=== PATIENT | male | born 1960 | race Caucasian/White ===

== ENCOUNTER 2023-01-24 06:57 | Inpatient (IN) ==
--- NOTE | 2023-01-24 07:09 | Emergency Department Note ---
Impression & Plan Unresponsive, ICH (intracerebral hemorrhage) ED Provider Note ED Provider Note NAME: FEI WALKER AGE:62 SEX: Male : 1960 ARRIVES VIA: EMS INFORMANT: EMS ED PROVIDER(s): Aria Singleton DO CHIEF COMPLAINT: Found unresponsive HPI: This is a 62-year-old male who presents from a local facility after being found unresponsive at change of shift by staff there. EMS report on their arrival patient was unresponsive, tachycardic, and hypertensive. They state per staff patient had been complaining of a headache the last 3 days. Patient is anticoagulated on Coumadin. Prehospital blood glucose mildly elevated in the 200s, patient was 90% on 6 L via nasal cannula. No additional information initially available. They state paperwork accompanying the patient stated he is DNR/DNI. PAST MEDICAL HISTORY:See Below PAST SURGICAL HISTORY:See Below FAMILY HISTORY:See Below SOCIAL HISTORY:See Below HOME MEDICATIONS:See Below ALLERGIES:See Below VITALS:See Below PHYSICAL EXAMINATION: GENERAL: Unresponsive, well nourished EYE EXAM: normal conjunctiva, pupils midposition, fixed, and slightly dilated OROPHARYNX: no exudate, no erythema, lips, buccal mucosa, and tongue normal and mucous membranes are dry, no gag reflex NECK: supple, no nuchal rigidity, no adenopathy LUNGS: Clear to auscultation. Normal chest wall mechanics, no w/r/r, sonorous respirations HEART: no murmurs, S1 normal and S2 normal, tachycardic ABDOMEN: abdomen soft, non-tender, normo-active bowel sounds, no masses, no elisabeth ound or guarding. BACK: Back is symmetrical on inspection and there is no deformity, no midline tenderness, no CVA tenderness. SKIN: no rashes, petechiae, orbruising UPPER EXTREMITIES: upper extremities are grossly normal. FROM, nml pulses b/l. LOWER EXTREMITIES: No pitting edema. FROM, nml pulses b/l. NEURO EXAM: GCS 3 Vital Signs: reviewed and remarkable Differential Diagnosis: CVA, ICH, ACS, dysrhythmia, sepsis, AAA, dissection, MICK, electrolyte abnormality as well as others were considered MEDICAL DECISION MAKING: This is a 62 yo male who presents unreponsive from a local facility after complaining of headache for 3 days per EMS report. Patient hypertensive and requiring oxygen to support respiratory efforts. GCS 3 on arrival. Labs drawn and sent, IV established, EKG and CXR performed and interpreted at bedside, and patient placed on telemetry. Patient on coumadin per [place] report additionally. Patient sent urgently for CT head which revealed large ICH. I called and updated daughter and discussed severity and patient's wishes and code status. In honoring his wishes on POLST form and in discussion with daughter, patient kept comfortable and case discussed with hospitalist team for comfort care measures given findings. Consultation(s): 924: Discussed with Kuldip Gagnon hospitalist team. ER Treatment Provided: See below 0735: Updated patient's daughter who is en route. She states patient had a large hemorrhagic stroke in October with surgery and has been rehabbing since. She confirms he is DNR/DNI and would not want to go thru surgery again. 910: Discussed with daughter at bedside. Diagnostics Interpreted By Me: -ECG: a.flutter at 120, left axis, normal QRS, prolonged QT, nonspecific ST/T wave changes -Cardiac Monitoring: An order was placed for continuous cardiac monitoring. The monitor shows a rate of 127 with atrial flutter rhythm. -Laboratory studies: As stated above and show below. -Imaging studies: X-ray Chest: A single view study of the chest was reviewed and was negative for cardiomegaly, focal infiltrate, effusion, or wide mediastinum. Evolving pulmonary edema noted b/l. Triage Nursing Note Reviewed Prior/Outside Records Reviewed - med list from faciity reviewed Procedures: [] Critical Care: Critical care of 49 min performed to assess and manage high likelihood of life- threatening ICH involving labs and imaging performed with assessment to evaluate ICH diagnosis with frequent reassessment. This time includes bedside time, treatment discussions with patient/family/consultants, documentation time and excludes procedure time. Past Med/Surg History Medical History (Updated 01/24/23 @ 10:15 by Carla Donato MD) Atrial fibrillation and flutter Chronic diastolic congestive heart failure Hemorrhagic stroke Hyperlipidemia Non-insulin dependent type 2 diabetes mellitus On warfarin therapy Primary hypertension Social History Smoking Status: Unknown if ever smoked Feels Safe at Home: Yes Allergies Allergies Allergy/AdvReac Type Severity Reaction Status Date / Time No Known Allergies Allergy Unverified 01/24/23 10:00 Home Meds Home Medications Medication Instructions Recorded Confirmed Milk Of Magnesia 1200 Mg/15ml See Rx Instructions .Route .COMPLEX 01/24/23 acetaminophen 325 mg tablet 650 mg PO Q6H PRN Pain 01/24/23 01/24/23 acetaminophen 325 mg tablet 650 mg PO Q6H PRN Temperature 01/24/23 01/24/23 allopurinol 100 mg tablet 100 mg PO QAM 01/24/23 01/24/23 amantadine HCl 100 mg tablet 100 mg PO BID 01/24/23 01/24/23 metformin 500 mg tablet 500 mg PO BID 01/24/23 01/24/23 metoprolol succinate 200 mg 200 mg PO DAILY 01/24/23 01/24/23 capsule sprinkle, ext. release 24 hr tramadol 50 mg tablet 50 mg PO BID 01/24/23 01/24/23 tramadol 50 mg tablet 50 mg PO Q4H PRN Pain 01/24/23 01/24/23 Results & Data (ED) Vital Signs Vital Signs - 24 hr 01/24/23 06:58 01/24/23 07:09 01/24/23 07:05 Temperature 37.7 C H Temperature Source Oral Pulse Rate 122 H 126 H Pulse Rate [Apical] Pulse Rhythm [Apical] Respiratory Rate 17 Respiratory Effort / Characteristics Spontaneous Respiratory Depth Normal Respiratory Pattern Agonal Blood Pressure 184/133 H Blood Pressure [Left Arm] Blood Pressure Mean 150 Blood Pressure Mean [Left Arm] Pulse Oximetry 94 Oxygen Delivery Method Room Air Room Air Oxygen Flow Rate Sepsis Recent Fever Within 48 Hours Yes Sepsis New/Unexplained Change in Mental Status No Sepsis Action Taken by Nursing No Action Required 01/24/23 07:24 01/24/23 07:30 01/24/23 07:45 Temperature Temperature Source Pulse Rate Pulse Rate [Apical] 132 H 94 H Pulse Rhythm [Apical] Irregular Respiratory Rate 18 17 Respiratory Effort / Characteristics Non-Labored Spontaneous Spontaneous Respiratory Depth Normal Respiratory Pattern Agonal Blood Pressure Blood Pressure [Left Arm] 216/144 H 159/100 H Blood Pressure Mean Blood Pressure Mean [Left Arm] 168 119 Pulse Oximetry 75 L 98 97 Oxygen Delivery Method Nasal Cannula Oxymask Oxymask Oxygen Flow Rate 6 13 13 Sepsis Recent Fever Within 48 Hours Sepsis New/Unexplained Change in Mental Status Sepsis Action Taken by Nursing 01/24/23 08:00 Temperature Temperature Source Pulse Rate Pulse Rate [Apical] Pulse Rhythm [Apical] Irregular Respiratory Rate Respiratory Effort / Characteristics Spontaneous Respiratory Depth Respiratory Pattern Agonal Blood Pressure Blood Pressure [Left Arm] 189/126 H Blood Pressure Mean Blood Pressure Mean [Left Arm] 147 Pulse Oximetry 98 Oxygen Delivery Method Oxymask Oxygen Flow Rate 13 Sepsis Recent Fever Within 48 Hours Sepsis New/Unexplained Change in Mental Status Sepsis Action Taken by Nursing Laboratory Data 01/24/23 07:07 01/24/23 07:07 Lab Results 01/24/23 01/24/23 01/24/23 Range/Units 07:07 07:07 07:07 WBC 22.47 H (4.8-10.8) K/ul RBC 6.40 H (4.70-6.10) M/uL Hgb 19.8 H (14.0-18.0) g/dl Hct 57.6 H (42.0-52.0) % MCV 90.0 (80.0-100.0) fL MCH 30.9 (25.0-34.0) pg MCHC 34.4 (32.0-36.0) g/dL RDW Std Deviation 46.0 (36.4-46.3) fL RDW Coeff of Rohith 13.9 (11.5-14.5) % Plt Count 511 H (130-400) K/uL MPV 9.5 (9.4-12.4) fL Immature Gran % (Auto) 0.7 % Neut % (Auto) 93.4 % Lymph % (Auto) 1.9 % [place] % (Auto) 3.8 % Eos % (Auto) 0.0 % Baso % (Auto) 0.2 % Neut # (Auto) 20.98 H (1.40-6.50) K/uL Lymph # (Auto) 0.43 L (1.2-3.4) K/uL [place] # (Auto) 0.85 H (0.11-0.59) K/uL Eos # (Auto) 0.00 (0-0.50) K/uL Baso # (Auto) 0.05 (0-0.2) K/uL Immature Gran # (Auto) 0.16 (0.01-0.20) K/uL PT Cancelled INR Cancelled Sodium 140 (136-145) mmol/L Potassium 3.4 L (3.5-5.1) mmol/L Chloride 93 L (98-107) mmol/L Carbon Dioxide 23 (21-32) mmol/L Anion Gap 24 H (3-11) BUN 17 (6-23) mg/dl Creatinine 0.94 (0.6-1.4) mg/dl Est Cr Clr Drug Dosing 76.8 ml/min Est GFR ( Amer) 98.9 ml/min Est GFR (Non-Af Amer) 85.3 ml/min BUN/Creatinine Ratio 18.1 (10-20) Glucose 251 H (70-99(Fasting)) mg/dl Lactate (0.4-2.0) mmol/L Calcium 10.6 H (8.6-10.3) mg/dl Magnesium 2.0 (1.7-2.4) mg/dl Total Bilirubin 1.2 H (0.2-1.0) mg/dl AST 18 (13-39) U/L ALT 16 (7-52) U/L Alkaline Phosphatase 180 H (34-104) U/L Troponin I High Sens 32.9 H (0-20) pg/ml Total Protein 9.6 H (6.0-8.3) gm/dl Albumin 4.5 (3.4-5.0) gm/dl Globulin 5.1 H (2.5-4.0) gm/dl Albumin/Globulin Ratio 0.9 (0.9-2) Lipase 50 (11-82) U/L 01/24/23 01/24/23 Range/Units 07:07 08:38 WBC (4.8-10.8) K/ul RBC (4.70-6.10) M/uL Hgb (14.0-18.0) g/dl Hct (42.0-52.0) % MCV (80.0-100.0) fL MCH (25.0-34.0) pg MCHC (32.0-36.0) g/dL RDW Std Deviation (36.4-46.3) fL RDW Coeff of Rohith (11.5-14.5) % Plt Count (130-400) K/uL MPV (9.4-12.4) fL Immature Gran % (Auto) % Neut % (Auto) % Lymph % (Auto) % [place] % (Auto) % Eos % (Auto) % Baso % (Auto) % Neut # (Auto) (1.40-6.50) K/uL Lymph # (Auto) (1.2-3.4) K/uL [place] # (Auto) (0.11-0.59) K/uL Eos # (Auto) (0-0.50) K/uL Baso # (Auto) (0-0.2) K/uL Immature Gran # (Auto) (0.01-0.20) K/uL PT 53.9 H INR 5.5 H Sodium (136-145) mmol/L Potassium (3.5-5.1) mmol/L Chloride (98-107) mmol/L Carbon Dioxide (21-32) mmol/L Anion Gap (3-11) BUN (6-23) mg/dl Creatinine (0.6-1.4) mg/dl Est Cr Clr Drug Dosing ml/min Est GFR ( Amer) ml/min Est GFR (Non-Af Amer) ml/min BUN/Creatinine Ratio (10-20) Glucose (70-99(Fasting)) mg/dl Lactate 6.1 H* (0.4-2.0) mmol/L Calcium (8.6-10.3) mg/dl Magnesium (1.7-2.4) mg/dl Total Bilirubin (0.2-1.0) mg/dl AST (13-39) U/L ALT (7-52) U/L Alkaline Phosphatase (34-104) U/L Troponin I High Sens (0-20) pg/ml Total Protein (6.0-8.3) gm/dl Albumin (3.4-5.0) gm/dl Globulin (2.5-4.0) gm/dl Albumin/Globulin Ratio (0.9-2) Lipase (11-82) U/L Administered Medications Discontinued Medications Sodium Chloride (Nss 1000ml) 1,000 mls @ 125 mls/hr IV .Q8H JOVANNY Stop: 02/23/23 07:14 Last Infusion: 01/24/23 12:44 Dose: 125 mls/hr Documented By: Infusion: 01/24/23 11:04 Dose: 0 mls/hr Documented By: Admin: 01/24/23 07:25 Dose: 125 mls/hr Documented By: GISEL Acetaminophen (Ofirmev) 1,000 mg in 100 mls @ 400 mls/hr IV NOW STA Stop: 01/24/23 12:52 Last Infusion: 01/24/23 13:00 Dose: 0 mls/hr Documented By: Admin: 01/24/23 12:44 Dose: 400 mls/hr Documented By: Labetalol HCl (Labetalol Hcl Iv 5 Mg/Ml 20ml) 10 mg IV NOW STA Stop: 01/24/23 07:35 Last Admin: 01/24/23 07:40 Dose: 10 mg Documented By: GISEL Co-signed By: ALICIA Lorazepam (Lorazepam 2 Mg/1 Ml Vial) 0.5 mg IV Q8H PRN PRN Reason: Anxiety/Agitation Stop: 02/23/23 10:18 Last Admin: 01/24/23 12:10 Dose: 0.5 mg Documented By: GISEL Morphine Sulfate (Morphine Sulfate 2 Mg/Ml Carp) 0.5 mg IV Q30M PRN PRN Reason: air hunger, pain Stop: 02/07/23 12:01 Last Admin: 01/24/23 12:11 Dose: 0.5 mg Documented By: GISEL Imaging Data Radiologist's Impression: Chest X-Ray 01/24/23 07:03 XR chest 1V portable HISTORY: 62 years-old Male ams, fever acute fever with altered mental status COMPARISON: None TECHNIQUE: AP view of the chest FINDINGS: Cardiac silhouette is enlarged. Mild right hemidiaphragmatic elevation. Pulmonary vascular congestion. No pneumothorax, large pleural effusion or lobar airspace consolidation. Bones appear grossly intact. IMPRESSION: Cardiomegaly with pulmonary vascular congestion. ACT 112: Negative or not required by law. The above report was generated using voice recognition software. It may contain grammatical, syntax or spelling errors. Electronically signed by: Jake Aldrich M.D. 01/24/2023 7:[address] 01/24/23 07:03 CT head/brain wo con CLINICAL HISTORY: 62 years-old Male with ams. Acutely altered mental status TECHNIQUE: Multiple axial CT images of the head were obtained without contrast. A dose lowering technique was utilized adhering to the principles of ALARA. CT DOSE: 625.72 mGy.cm COMPARISON: 01/02/2023 FINDINGS: There is a large right sided hemorrhagic focus measuring 7.7 x 5.1 cm on image 17 series 2 predominantly appears to be centered within the right thalamus and lateral ventricle. There is dilation of the ventricular system, most pronounced in the right lateral ventricle. There is resultant leftward midline shift of 5 mm. No cerebellar tonsillar herniation. Partial effacement of the quadrigeminal plate cistern. Hemorrhage extends into the left lateral, third and fourth ventricles and basilar cisterns. Areas of subtle probable subarachnoid hemorrhage noted within the bilateral cerebral hemispheres. The lugo-white interface appears generally preserved at this time. Background of ch ronic microvascular ischemic disease. Ill-defined hypodensity within the right paracentral juan again noted. The calvarium is intact. Mild mucosal thickening of the paranasal sinuses. IMPRESSION: 1. 7.7 cm right-sided hemorrhagic focus predominantly appears to be centered within the right thalamus and right lateral ventricle. Additional hemorrhage is noted throughout the ventricular system extending into the basilar cisterns resu lting in hydrocephalus with significant mass effect and 5 mm leftward midline shift (subfalcine herniation). Findings may related to hemorrhagic transformation of the previously described right thalamic infarct. 2. No areas of ill-defined bilateral cerebral subarachnoid hemorrhage. Findings were discussed with Dr. Aria Singleton on 01/24/2023 at 7:20 AM. ACT 112: Negative or not required by law. The above report was generated using voice recognition software. It may contain grammatical, syntax or spelling errors. Electronically signed by: Jake Aldrich M.D. 01/24/2023 7:26 AM Discharge Plan Visit Data Chief Complaint: Unresponsive Stated Complaint: UNRESPONSIVE/H.A. X 3DAYS/ A-FLUTTER ED Provider: Aria Singleton Discharge Problem: Unresponsive, ICH (intracerebral hemorrhage) Patient Disposition: Admitted As Inpatient Discharge Instructions Interventions: ED Discharge Assessment Last Done: 01/24/23 12:56
[2023-01-24] MEDS ORDERED: SODIUM CHLORIDE 0.9% 1000ML 1,000 ML IV SCH (07:15)
[2023-01-24 07:28] LABS: Hematocrit (blood only) 57.6 % (42.0-52.0); Hemoglobin 19.8 g/dl (14.0-18.0); Mean Corpuscular Hemoglobin 30.9 pg (25.0-34.0); Mean Corpuscular Hgb Conc 34.4 g/dL (32.0-36.0); Mean Platelet Volume 9.5 fL (9.4-12.4); Platelet Count 511 K/uL (130-400); RDW Coefficient of Variation 13.9 % (11.5-14.5); White Blood Count 22.47 K/ul (4.8-10.8)
--- NOTE | 2023-01-24 07:29 | CT Scan Report ---
CT head/brain wo con CLINICAL HISTORY: 62 years-old Male with ams. Acutely altered mental status TECHNIQUE: Multiple axial CT images of the head were obtained without contrast. A dose lowering tech nique was utilized adhering to the principles of ALARA. CT DOSE: 625.72 mGy.cm COMPARISON: 01/02/2023 FINDINGS: There is a large right sided hemorrhagic focus measuring 7.7 x 5.1 cm on image 17 series 2 predominantly appears to be centered within the right thalamus and lateral ventricle. There is dilati on of the ventricular system, most pronounced in the right lateral ventricle. There is resultant left ureña midline shift of 5 mm. No cerebellar tonsillar herniation. Partial effacement of the quadrigemin al plate cistern. Hemorrhage extends into the left lateral, third and fourth ventricles and basilar c isterns. Areas of subtle probable subarachnoid hemorrhage noted within the bilateral cerebral hemisph eres. The lugo-white interface appears generally preserved at this time. Background of chronic microv ascular ischemic disease. Ill-defined hypodensity within the right paracentral juan again noted. The calvarium is intact. Mild mucosal thickening of the paranasal sinuses. IMPRESSION: 1. 7.7 cm right-sided hemorrhagic focus predominantly appears to be centered within the right thalamu s and right lateral ventricle. Additional hemorrhage is noted throughout the ventricular system exten ding into the basilar cisterns resulting in hydrocephalus with significant mass effect and 5 mm leftw joel midline shift (subfalcine herniation). Findings may related to hemorrhagic transformation of the previously described right thalamic infarct. 2. No areas of ill-defined bilateral cerebral subarachnoid hemorrhage. Findings were discussed with Dr. Aria Singleton on 01/24/2023 at 7:20 AM. ACT 112: Negative or not required by law. The above report was generated using voice recognition software. It may contain grammatical, syntax o r spelling errors. Electronically signed by: Jake Aldrich M.D. 01/24/2023 7:26 AM
[2023-01-24] MEDS ORDERED: LABETALOL HCL IV 5 MG/ML 20ML IV STA (07:34)
[2023-01-24 07:48] LABS: Basophils # (auto) 0.05 K/uL (0-0.2); Basophils % (auto) 0.2 %; Immature Granulocytes # (auto) 0.16 K/uL (0.01-0.20); Immature Granulocytes % (auto) 0.7 %; Lymphocytes # (auto) 0.43 K/uL (1.2-3.4); Lymphocytes % (auto) 1.9 %; Monocytes # (auto) 0.85 K/uL (0.11-0.59); Monocytes % (auto) 3.8 %; Neutrophils # (auto) 20.98 K/uL (1.40-6.50); Neutrophils % (auto) 93.4 %
[2023-01-24 07:50] LABS: Albumin Globulin Ratio 0.9 (0.9-2); Albumin Level 4.5 gm/dl (3.4-5.0); BUN Creatinine Ratio 18.1 (10-20); Bilirubin,Total 1.2 mg/dl (0.2-1.0); Calcium 10.6 mg/dl (8.6-10.3); Creatinine Clr Calc Pharmacy 76.8 ml/min; Est GFR (African American) 98.9 ml/min; Est GFR (Non-African American) 85.3 ml/min; Globulin 5.1 gm/dl (2.5-4.0); Potassium 3.4 mmol/L (3.5-5.1); Total Protein 9.6 gm/dl (6.0-8.3)
[2023-01-24 07:56] LABS: Troponin I High Sensitivity 32.9 pg/ml (0-20)
--- NOTE | 2023-01-24 08:00 | XRay Report ---
XR chest 1V portable HISTORY: 62 years-old Male ams, fever acute fever with altered mental status COMPARISON: None TECHNIQUE: AP view of the chest FINDINGS: Cardiac silhouette is enlarged. Mild right hemidiaphragmatic elevation. Pulmonary vascular congestion . No pneumothorax, large pleural effusion or lobar airspace consolidation. Bones appear grossly intac t. IMPRESSION: Cardiomegaly with pulmonary vascular congestion. ACT 112: Negative or not required by law. The above report was generated using voice recognition software. It may contain grammatical, syntax o r spelling errors. Electronically signed by: Jake Aldrich M.D. 01/24/2023 7:58 AM
--- NOTE | 2023-01-24 09:55 | History & Physical Report ---
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 d/c IVF, vs checks no DVT ppx (mechanical d/t HIGH SPEED OPERATOR and chemical d/t ICH) Present on Admission?: Yes (2) ICH (intracerebral hemorrhage): Plan: as under underresponsive Present on Admission?: Yes (3) On warfarin therapy: Plan: d/c warfarin d/t ICH and HIGH SPEED OPERATOR Present on Admission?: Yes (4) Atrial fibrillation and flutter: Plan: no antiarrhythmics or rate control agents d/t HIGH SPEED OPERATOR Present on Admission?: Yes (5) Non-insulin dependent type 2 diabetes mellitus: Plan: no antihyperglycemics d/t HIGH SPEED OPERATOR, pt is unable to take po Present on Admission?: Yes (6) Primary hypertension: Plan: d/c IV Metoprolol as pt is 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 Family is not available and patient is unresponsive. Mr. Marin is a 62 year old male with pmhx of chronic HFpEF, AFib/flutter on warfarin, NIDDM-II (associated with HTN and HLP), hx of CVA with residual deficit. Per chart recent stroke (November 2022) was nontraumatic hemorrhagic stroke. Per verbal sign out was ischemic. Regardless, pt was on Warfarin for AFib/flutter. He had complained of intermittent headache over the 3 days. On the day of presentation he was found to be unresponsive. Here he was found to have a significant hemorrhagic stroke. He is DRN/DNI per POLST form. ED staff discussed GOC with family. Plan is for comfort measures only. Allergies Allergy/AdvReac Type Severity Reaction Status Date / Time No Known Allergies Allergy Unverified 01/24/23 10:00 Home Medications Medication Instructions Recorded Confirmed Type Milk Of Magnesia 1200 Mg/15ml See Rx Instructions .Route .COMPLEX 01/24/23 History acetaminophen 325 mg tablet 650 mg PO Q6H PRN Pain 01/24/23 01/24/23 History acetaminophen 325 mg tablet 650 mg PO Q6H PRN Temperature 01/24/23 01/24/23 History allopurinol 100 mg tablet 100 mg PO QAM 01/24/23 01/24/23 History amantadine HCl 100 mg tablet 100 mg PO BID 01/24/23 01/24/23 History metformin 500 mg tablet 500 mg PO BID 01/24/23 01/24/23 History metoprolol succinate 200 mg 200 mg PO DAILY 01/24/23 01/24/23 History capsule sprinkle, ext. release 24 hr tramadol 50 mg tablet 50 mg PO BID 01/24/23 01/24/23 History tramadol 50 mg tablet 50 mg PO Q4H PRN Pain 01/24/23 01/24/23 History Past Med/Surg History Medical History (Updated 01/24/23 @ 10:15 by Carla Donato MD) Atrial fibrillation and flutter Chronic diastolic congestive heart failure Hemorrhagic stroke Hyperlipidemia Non-insulin dependent type 2 diabetes mellitus On warfarin therapy Primary hypertension Social History Smoking Status: Unknown if ever smoked Feels Safe at Home: Yes Review of Systems Review of Systems: Unobtainable due to cognitive status Physical Exam Physical Exam: General- adult, agonal respirations Head- NC AT Eyes- pupils are fixed, dilated, anicteric Nose- nares patent MMM- dry Neck- supple, trachea midline Lungs- clear to auscultation b/l anterioraly Heart- tachy, irreg irreg. No m/r/g Abdomen- normal bowel sounds, soft, nontender, nondistended, no guarding Extremities- no pretibial edema, peripheral pulses intact MSK- normal bulk and tone Neuro- unresponsive, pupils fixed and dilated psych- unable to evaluate d/t mental status Skin- warm & dry, no visible rash Results & Data Results & Data Vital Signs (Past 12 Hours) Vital Signs Temp Pulse Pulse Resp BP BP Pulse Ox 01/24/23 08:00 189/126 H 98 01/24/23 07:45 94 H 17 159/100 H 97 01/24/23 07:30 132 H 18 216/144 H 98 01/24/23 07:24 75 L 01/24/23 07:05 126 H 01/24/23 07:09 01/24/23 06:58 37.7 C H 122 H 17 184/133 H 94 O2 Del Method O2 Flow Rate 01/24/23 08:00 Oxymask 13 01/24/23 07:45 Oxymask 13 01/24/23 07:30 Oxymask 13 01/24/23 07:24 Nasal Cannula 6 01/24/23 07:05 01/24/23 07:09 Room Air 01/24/23 06:58 Room Air Laboratory Results Short CBC 01/24/23 Range/Units 07:07 WBC 22.47 H (4.8-10.8) K/ul Hgb 19.8 H (14.0-18.0) g/dl Hct 57.6 H (42.0-52.0) % Plt Count 511 H (130-400) K/uL BMP 01/24/23 07:07 Sodium 140 Potassium 3.4 L Chloride 93 L Carbon Dioxide 23 BUN 17 Creatinine 0.94 Glucose 251 H Calcium 10.6 H Liver Function 01/24/23 Range/Units 07:07 Total Bilirubin 1.2 H (0.2-1.0) mg/dl AST 18 (13-39) U/L ALT 16 (7-52) U/L Alkaline Phosphatase 180 H (34-104) U/L Albumin 4.5 (3.4-5.0) gm/dl Diagnostic Findings Chest X-Ray 01/24/23 07:03 XR chest 1V portable IMPRESSION: Cardiomegaly with pulmonary vascular congestion. Head CT 01/24/23 07:03 CT head/brain wo con FINDINGS: There is a large right sided hemorrhagic focus measuring 7.7 x 5.1 cm on image 17 series 2 predominantly appears to be centered within the right thalamus and lateral ventricle. There is dilation of the ventricular system, most pronounced in the right lateral ventricle. There is resultant leftward midline shift of 5 mm. No cerebellar tonsillar herniation. Partial effacement of the quadrigeminal plate cistern. Hemorrhage extends into the left lateral, third and fourth ventricles and basilar cisterns. Areas of subtle probable subarachnoid hemorrhage noted within the bilateral cerebral hemispheres. The lugo-white interface appears generally preserved at this time. Background of chronic microvascular ischemic disease. Ill-defined hypodensity within the right paracentral juan again noted. The calvarium is intact. Mild mucosal thickening of the paranasal sinuses. IMPRESSION: 1. 7.7 cm right-sided hemorrhagic focus predominantly appears to be centered within the right thalamus and right lateral ventricle. Additional hemorrhage is noted throughout the ventricular system extending into the basilar cisterns resulting in hydrocephalus with significant mass effect and 5 mm leftward midline shift (subfalcine herniation). Findings may related to hemorrhagic tr ansformation of the previously described right thalamic infarct. 2. No areas of ill-defined bilateral cerebral subarachnoid hemorrhage. Findings were discussed with Dr. Aria Singleton on 01/24/2023 at 7:20 AM. Medications Administered Sodium Chloride (Nss 1000ml) 1,000 mls @ 125 mls/hr IV .Q8H JOVANNY Stop: 02/23/23 07:14 Last Admin: 01/24/23 07:25 Dose: 125 mls/hr Documented By: MH Code Status & VTE Plan Code Status MARJAN/TERESA, HIGH SPEED OPERATOR VTE Prophylaxis Plan VTE Prophylaxis will be ordered: No Reason for no VTE drug order: Treatment not indicated
[2023-01-24 10:03] LABS: INR 5.5 (0.9-1.1); Prothrombin Time 53.9 Seconds (9.0-12.0)
[2023-01-24] MEDS ORDERED: MoRPHine BOLUS from BAG IV PRN (10:19)
[2023-01-24] MEDS ORDERED: LORazepam 2 MG/1 ML VIAL IV PRN (10:19)
[2023-01-24] MEDS ORDERED: MoRPHine SULFATE 2 MG/ML CARP IV PRN (12:02)
[2023-01-24] MEDS ORDERED: ACETAMINOPHEN 1,000 MG/100 ML VIAL IV STA (12:38)
[2023-01-24] MEDS ORDERED: ACETAMINOPHEN 1,000 MG/100 ML VIAL IV PRN (13:53)
--- NOTE | 2023-01-24 14:16 | Death Pronouncement Note ---
Date of Service January 24, 2023 Pronouncement Note Admission Date January 24, 2023 Preliminary Cause of (1) ICH (intracerebral hemorrhage): Contributing Factors warfarin therapy Summary Pt was found unresponsive at [facility] after complaining of intermittent headache for 3 days. Here he was found to have intracerebral hemorrhage. Family decided to make the patient comfort measures only. He was noted to take his last breath at 13:45. I was called to bedside to evaluate the patient. On exam he did not respond to pain stimuli, pupils were fixed and dilated, mouth agape. No palpable carotid pulse. No audible cardiopulmonary sounds on auscultation. Pt pronounced by me. Time of 13:45. Additional Data Attending physician: Carla Donato MD
--- NOTE | 2023-01-24 14:40 | Discharge Summary ---
Discharge Summary Date of Service January 24, 2023 Notes For Next Care Provider Medication Changes From Visit patient . Admission HPI Per Admitting Provider History is per chart review and verbal sign out from ED staff. Family is not available and patient is unresponsive. Mr. Marin is a 62 year old male with pmhx of chronic HFpEF, AFib/flutter on warfarin, NIDDM-II (associated with HTN and HLP), hx of CVA with residual deficit. Per chart recent stroke (November 2022) was nontraumatic hemorrhagic stroke. Per verbal sign out was ischemic. Regardless, pt was on Warfarin for AFib/flutter. He had complained of intermittent headache over the 3 days. On the day of presentation he was found to be unresponsive. Here he was found to have a significant hemorrhagic stroke. He is DRN/DNI per POLST form. ED staff discussed GOC with family. Plan is for comfort measures only. Admission Exam Per Admitting Provider General-adult, agonal respirations Head- NC AT Eyes- pupils are fixed, dilated, anicteric Nose-nares patent MMM-dry Neck- supple, trachea midline Lungs- clear to auscultation b/l anterioraly Heart- tachy, irreg irreg. No m/r/g Abdomen- normal bowel sounds, soft, nontender, nondistended, no guarding Extremities- no pretibial edema, peripheral pulses intact MSK-normal bulk and tone Neuro- unresponsive, pupils fixed and dilated psych-unable to evaluate d/t mental status Skin- warm & dry, no visible rash Principal Dx & Hospital Course #1 = Principal Diagnosis (1) ICH (intracerebral hemorrhage): pt is . planning per family. Plan pt is . planning per family Discharge Exam No response to verbal or pain stimuli. Pupils are fixed and dilated, no response to light. Mouth is agape. No palpable carotid pulse. No cardiopulmonary sounds on auscultation. Pt is . Updated Medication List Medication Instructions Recorded Confirmed Type Milk Of Magnesia 1200 Mg/15ml See Rx Instructions .Route .COMPLEX 01/24/23 History acetaminophen 325 mg tablet 650 mg PO Q6H PRN Pain 01/24/23 01/24/23 History acetaminophen 325 mg tablet 650 mg PO Q6H PRN Temperature 01/24/23 01/24/23 History allopurinol 100 mg tablet 100 mg PO QAM 01/24/23 01/24/23 History amantadine HCl 100 mg tablet 100 mg PO BID 01/24/23 01/24/23 History metformin 500 mg tablet 500 mg PO BID 01/24/23 01/24/23 History metoprolol succinate 200 mg 200 mg PO DAILY 01/24/23 01/24/23 History capsule sprinkle, ext. release 24 hr tramadol 50 mg tablet 50 mg PO BID 01/24/23 01/24/23 History tramadol 50 mg tablet 50 mg PO Q4H PRN Pain 01/24/23 01/24/23 History Hospital Stay Data Consultations 01/24/23 09:24 ED Decision to Admit Stat Procedures Performed none Diagnostic Imagining Performed 01/24/23 07:03 CT head/brain wo con Stat Pending Results Patient Have Any Pending Studies at Discharge: No Discharge Instructions Given to Patient (Per Discharging Provider) none Total Time Total Time Spent Total Time Spent (In Minutes): 22 minutes including bedside exam, discussion/answering questions with daughter, documentation including note, d/c summary, and electronic certificate
--- NOTE | 2023-01-26 06:02 | Electrocardiogram Report ---
Test Reason : Blood Pressure : / mmHG Vent. Rate : 120 BPM Atrial Rate : 300 BPM P-R Int : 000 ms QRS Dur : 112 ms QT Int : 350 ms P-R-T Axes : 000 -39 110 degrees QTc Int : 495 ms Atrial flutter with variable A-V block Left axis deviation Left ventricular hypertrophy with repolarization abnormality T wave abnormality, consider lateral ischemia Prolonged QT Abnormal ECG No previous ECGs available Confirmed by Simone Willard ([id number]) on 01/26/2023 6:01:46 AM Referred By: [facility] Confirmed By:Simone Willard
== END 2023-01-24 17:56 | disposition expired | DRG 65 ==
LOC: ED 06:57 → 3E 09:32